=== PATIENT | male | born 1965 | race Caucasian/White ===

== ENCOUNTER 2017-06-01 11:39 | Emergency (ER) | payer OTHER ==
[~2017-06-01 11:39] MED LIST: ALL180 PO; CARB400T3 PO; LAMO200T38 PO; SERT50TA PO
[2017-06-01 11:41] VITALS: TEMP 36.5
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
[2017-06-01 12:53] LABS: URINE APPEARANCE CLEAR (CLEAR); URINE BILIRUBIN NEG (NEG); URINE COLOR YELLOW; URINE EPITHELIAL CELL AUTO 0-5 /lpf (0-5); URINE NITRITE NEG (NEG); URINE SPECIFIC GRAVITY 1.015 (1.000-1.030); UROBILINOGEN NEG (NEG)
[2017-06-01 13:14] LABS: BASO % 0.2 %; BASO ABS # 0.02 K/uL (0-0.2); COMPLETE YES; EOS % 2.5 %; HEMATOCRIT 43.6 % (42-52); IG% 0.6 %; LYMPH % 13.5 %; LYMPH ABS # 1.13 K/uL (1.2-3.4); MEAN CORPUSCULAR HEMOGLOBIN 31.3 pg (25-34); MEAN CORPUSCULAR HGB CONC 34.4 g/dl (32-36); MEAN PLATELET VOLUME 9.8 fL (7.4-10.4); MONO % 7.7 %; NEUT % 75.5 %; PLATELET COUNT 264 K/uL (130-400); RED BLOOD COUNT 4.79 M/uL (4.7-6.1)
[2017-06-01 13:19] LABS: BENZODIAZEPINE, URINE NEG (NEG); COCAINE,URINE NEG (NEG); PHENCYCLIDINE, URINE NEG (NEG)
[2017-06-01 13:22] LABS: MANUAL MICROSCOPIC REQUIRED? NO; REVIEW REQ? NO
[2017-06-01 13:31] LABS: ALT/SGPT 24 U/L (12-78); AST/SGOT 13 U/L (15-37); BLOOD UREA NITROGEN 12 mg/dl (7-18); BUN/CREATININE RATIO 12.4 (10-20); CALCIUM 8.5 mg/dl (8.5-10.1); CARBON DIOXIDE 30 mmol/L (21-32); CHLORIDE 106 mmol/L (98-107); CREATININE 1.01 mg/dl (0.60-1.40); GLUCOSE 106 mg/dl (70-99); SODIUM 138 mmol/L (136-145)
[2017-06-01 13:42] LABS: ALKALINE PHOSPHATASE 68 U/L (45-117)
[2017-06-01] MEDS ORDERED: LAMO200T38 PO (16:09)
[2017-06-01] MEDS ORDERED: BUSP15TA70 PO (16:09)
[2017-06-01] MEDS ORDERED: SERT-234 PO (16:09)
[2017-06-01] MEDS ORDERED: KPP/1000 PO (16:09)
[2017-06-01] MEDS ORDERED: BUSP-8 PO (18:15)
[2017-06-01] MEDS ORDERED: LEVE500T PO (18:15)
[2017-06-01] MEDS ORDERED: LAMO150T32 PO (18:15)
[2017-06-01] MEDS ORDERED: LEVETIRACETAM 500 MG TAB PO STA (19:48)
[2017-06-01 21:38] VITALS: BP 124/82; PULSE 84; O2SAT 100
== END 2017-06-01 21:41 ==
LOC: C.EDB 11:40 → C.EDA 21:41
DX: F39 Unspecified mood [affective] disorder (principal); G40.209 Localization-related (focal) (partial) symptomatic epilepsy and epileptic syndromes with complex partial seizures, not intractable, without status epilepticus; F41.9 Anxiety disorder, unspecified; Z62.810 Personal history of physical and sexual abuse in childhood